=== PATIENT | male | born 1955 | race Two or more races ===

== ENCOUNTER 2024-06-25 15:34 | Emergency (ER) | payer BC, MEDICAID ==
[~2024-06-25] VITALS: Ht 180.3 cm; Wt 78.4 kg
[2024-06-25 16:02] VITALS: BP 150/97; PULSE 89; RESP 16; TEMP 98; O2SAT 98
--- NOTE | 2024-06-25 16:38 | ED.PDOC ---
Eye-HPI HPI Comments A 69 YEAR OLD MALE PRESENTS TO THE ED WITH COMPLAINT OF DECREASED HEARING IN BILATERAL EARS. PATIENT STATES HE HAS BEEN EXPERIENCING DECREASED HEARING IN BOTH OF HIS EARS FOR THE PAST 1 WEEK. PATIENT DENIES FEVER, CHILLS, SHORTNESS OF BREATH, CHEST PAIN, ABDOMINAL PAIN, NAUSEA, VOMITING, HEADACHE, OR OTHER COMPLAINTS. NO OTHER SYMPTOMS OR MODIFYING FACTORS AT THIS TIME. PATIENT IS ALERT, ORIENTED X 4, AND HAS STEADY GAIT. Chief Complaint: Earache Time Seen by MD: 16:03 Reviewed Notes: Nurses Notes, Medications, Allergies Allergies: Coded Allergies: NO KNOWN ALLERGIES (Unverified , 06/25/24) Information Source: Patient Mode of Arrival: Ambulatory Timing: Days Duration: Since onset, Days Prehospital treatment: None Quality: Hearing loss Lids: Normal Conjunctiva: Normal Pupils: Normal EOM: Normal Fundus: Normal Slit lamp exam: Normal Anterior chamber: Normal Mouth: Normal ENT Ear Exam: Cerumen, Normal, Normal Nose: Normal Sinuses: Normal Oropharynx: Normal Onset: Spontaneous Throat Exposed to: None History of: None Last Tetanus: Unknown Modifying factors: Nothing Associated signs and symptoms: None Past Medical History PAST MEDICAL HISTORY: Denies Surgical History: Denies all surgeries Family History Family History: Reviewed,noncontributory to illness Social History Smoker: Non-Smoker Alcohol: Denies ETOH Use Drugs: Denies Drug Use Lives In: Home Constitutional: denies: chills, diaphoresis, fatigue, fever, malaise, sweats, weakness, others EENTM: reports: others (DEECREASED HEARING IN BILATERAL EARS); denies: blurred vision, double vision, ear bleeding, ear discharge, ear drainage, ear pain, ear ringing, eye pain, eye redness, hearing loss, mouth pain, mouth swelling, nasal discharge, nose bleeding, nose congestion, nose pain, photophobia, tearing, throat pain, throat swelling, voice changes Respiratory: denies: cough, hemoptysis, orthopnea, SOB at rest, shortness of breath, SOB with excertion, stridor, wheezing, others Cardiovascular: denies: chest pain, dizzy spells, diaphoresis, Dyspnea on exertion, edema, irregular heart beat, left arm pain, lightheadedness, palpitations, PND, syncope, others Gastrointestinal: denies: abdomen distended, abdominal pain, blood streaked bowels, constipated, diarrhea, dysphagia, difficulty swallowing, hematemesis, melena, nausea, poor appetite, poor fluid intake, rectal bleeding, rectal pain, vomiting, others Genitourinary: denies: burning, dysuria, flank pain, frequency, hematuria, incontinence, penile discharge, penile sore, pain, testicle pain, testicle swelling, urgency, others Neurological: denies: dizziness, fainting, headache, left sided numbness, left sided weakness, numbness, paresthesia, pre-existing deficit, right sided numbness, right sided weakness, seizure, speech problems, tingling, tremors, weakness, others Musculoskeletal: denies: back pain, gout, joint pain, joint swelling, muscle pain, muscle stiffness, neck pain, others Integumetry: denies: bruises, change in color, change in hair/nails, dryness, laceration, lesions, lumps, rash, wounds, others Allergic/Immunocompromised: denies: Difficulty Healing, Frequent Infections, Hives, Itching, others Hematologic/Lymphatic: denies: anemia, blood clots, easy bleeding, easy bruising, swollen glands, others Endocrine: denies: excessive hunger, excessive sweating, excessive thirst, excessive urination, flushing, intolerance to cold, intolerance to heat, unexplained weight gain, unexplained weight loss, others Psychiatric: denies: anxiety, bipolar disorder, depression, hopeless, panic disorder, schizophrenia, sleepless, suicidal, others All Other Systems: Reviewed and Negative Physical Exam General Appearance: No Apparent Distress, Normal HEENT: PERRL/EOMI, Pharynx Normal, TMs Normal, Other (CERUMEN IMPACTION OF BILATERAL EAR CANAL, NO REDNESS, SWELLING AND INFECTION OF TMS. ) Neck: Full Range of Motion, Non-Tender, Normal, Normal Inspection Respiratory: Chest Non-Tender, Lungs Clear, No Accessory Muscle Use, No Respiratory Distress, Normal Breath Sounds Cardiovascular: No Edema, No JVD, No Murmur, No Gallop, Normal Peripheral Pulses, Regular Rate/Rhythm Breast Exam: Deferred Gastrointestinal: No Organomegaly, Non Tender, No Pulsatile Mass, Normal Bowel Sounds, Soft Genitalia: Deferred Pelvic: Deferred Rectal: Deferred Extremities: No calf tenderness, Normal capillary refill, Normal inspection, Normal range of motion, Non-tender, No pedal edema Musculoskeletal : Apperance: Normal Neurologic: Alert, dry cure worker II-XII nml as Tested, No Motor Deficits, Normal Affect, Normal Mood, No Sensory Deficits Cerebellar Function: Normal Reflexes: Normal Skin: Dry, Normal Color, Warm Peripheral Pulses: 2+ carotid (R), 2+ carotid (L) Lymphatic: No Adenopathy Was a procedure done? Was a procedure done?: Yes Sedation Sedation?: No Foreign Body Removal Foreign body in: Ear (BILATERAL EARS) Anesthetic: Nothing Prep: Saline, Irrigation (WITH WARM WATER OF BOTH EARS. ) Procedure: Identified (+BILATERAL CERUMEN IMPACTION), Removed (PATIENT'S BILATERAL EARS WERE SOAKED WITH HYDROGEN PEROXIDE FOR ABOUT 30 MINUTES AND THEN A WARM NORMAL SALINE FLUSH WAS USED TO IRRIGATE THE PATIENT'S BILATERAL EARS. A LARGE AMOUNT OF CERUMEN WAS REMOVED FROM HIS BILATERAL EARS. PATIENT TOLERATED WELL.) Informed consent obtained: No Risks/benefits/alt described: Yes Notes PATIENT'S BILATERAL EARS WERE SOAKED WITH HYDROGEN PEROXIDE FOR ABOUT 30 MINUTES AND THEN A WARM NORMAL SALINE FLUSH WAS USED TO IRRIGATE THE PATIENT'S BILATERAL EARS. A LARGE AMOUNT OF CERUMEN WAS REMOVED FROM HIS BILATERAL EARS. PATIENT TOLERATED WELL. EENT DIFF Eye: N/A Ear: Cerumen Impaction, Otitis Externa, Otitis Media, Pharyngitis, Sinusitis Nose: N/A Mouth: N/A Sore Throat: N/A X-Ray, Labs, Meds, VS Vital Signs Date Time Temp Pulse Resp B/P (MAP) Pulse Ox O2 Delivery O2 Flow Rate FiO2 06/25/24 16:02 89 16 98 Room Air 06/25/24 16:02 98.0 89 16 150/97 (114) 98 98.0 06/25/24 16:02 98.0 89 16 150/97 (114) 98 X-Ray, Labs, Meds, VS Comment EXTERNAL MEDICAL RECORDS REVIEWED: [NONE] INDEPENDENT HISTORIANS: [NONE] SOCIAL DETERMINANTS OF HEALTH: [NONE] LABS ORDERED: NONE REVIEWED AND INTERPRETED RESULTS: NONE IMAGING ORDERED: NONE TREATMENTS ORDERED: PATIENT'S BILATERAL EARS WERE SOAKED WITH HYDROGEN PEROXIDE FOR ABOUT 30 MINUTES AND THEN A WARM NORMAL SALINE FLUSH WAS USED TO IRRIGATE THE PATIENT'S BILATERAL EARS. A LARGE AMOUNT OF CERUMEN WAS REMOVED FROM HIS BILATERAL EARS. PATIENT TOLERATED WELL. PROCEDURES PERFORMED: NONE CRITICAL CARE TIME: NONE I HAVE DISCUSSED THE PATIENT WITH THE ATTENDING PHYSICIAN DR. RAJAN AND HE AGREES WITH THE PATIENT'S PLAN OF CARE AND DISPOSITION. BASED ON HISTORY OF PRESENT ILLNESS, AND PHYSICAL EXAM, PATIENT WILL BE DISCHARGED HOME. SHARED DECISION MAKING: PATIENT INSTRUCTED TO FOLLOW UP WITH PRIMARY CARE PROVIDER IN 1-2 DAYS FOR RE-EVALUATION OF SYMPTOMS. PATIENT VERBALIZES UNDERSTANDING TO RETURN TO ED FOR NEW OR WORSENING SYMPTOMS OR IF FOLLOW UP WITH PCP CANNOT BE OBTAINED. PATIENT FEELS COMFORTABLE GOING HOME AT THIS TIME. ALL QUESTIONS ADDRESSED AT TIME OF DISCHARGE. Time of 1ST Reevaluation: 17:31 Reevaluation 1ST: Improved Patient Education/Counseling: Diagnosis, Treatment, Need For Follow Up Family Education/Counseling: Diagnosis, Treatment, Need For Follow Up Medical Screening: No EMC Exist At This Time Departure 1 Departure Time of Disposition: 17:31 Impression: Primary Impression: Impacted cerumen of both ears Disposition: 01 HOME / SELF CARE / HOMELESS Condition: Stable Additional Instructions: FOLLOW-UP WITH PCP IN 1 TO 2 DAYS. TAKE MEDICATIONS PRESCRIBED. RETURN TO ED FOR ANY NEW OR WORSENING SYMPTOMS. Discharged With: Self Critical Care Note Critical Care Time?: No Stability Stability form required: No I personally scribed for PHYLLIS THAYER ([email or web address]) on 06/25/24 at 16:38. Electronically submitted by Michael Waller ([email or web address]). I personally scribed for PHYLLIS THAYER ([email or web address]) on 06/25/24 at 17:17. Electronically submitted by Michael Waller ([email or web address]). PHYLLIS THAYER Jun 25, 2024 16:38
== END 2024-06-25 17:35 | disposition home or self-care (01) ==
LOC: ER 15:34
DX: H61.23 Impacted cerumen, bilateral (principal)
CPT/HCPCS: 69209

== ENCOUNTER 2025-03-08 17:12 | Emergency (ER) | payer OTHER ==
[~2025-03-08] VITALS: Ht 180.3 cm; Wt 84.9 kg
--- NOTE | 2025-03-08 17:20 | ECG ---
[facility] Test Date: 2025-03-08 Test Time: 17:16:20 Pat Name: GINA FENG Department: Room: Gender: M [employer]isher: GP : 1955 Requested By: EMERGENCY EMERGENCY Order Number: [id number] Reading MD: Measurements Intervals [place] Rate: 95 P: 80 ME: 203 QRS: -67 QRSD: 115 T: 79 QT: 375 QTc: 472 Interpretive Statements Sinus rhythm Incomplete RBBB and LAFB Lateral infarct, old ST elevation, consider inferior injury Please click the below link to view image of tracing.
[2025-03-08 17:44] VITALS: TEMP 97.9
--- NOTE | 2025-03-08 17:46 | ED.PDOC ---
History of Present Illness HPI Comments HPI: 70 y/o M, accompanied by brother in law, presents to the ED for CC of med- refill. Patient states, he has been out of his Lisinopril and Xanax d/t being unable to accommodate transportation to [facility]. Patient relays, that he has been out of his prescribed medications x 2 months. Upon ar rival to the ED, patient is hypertensive with a blood pressure of 188/121mmHg. Patient endorses recent illicit drug usage [id number] ago; brother in law however, states patient was recently at the crisis center for erratic behavior after consumption of unknown illicit drugs x1week ago. Patient denies chest pain, shortness of breath, headache, dizziness, nausea, or vomiting. No other symptoms or modifying factors are present at this time. Initial Vitals BP: HR: RR: O2 Sat: Temp: Past Medical history: Past Surgical history: DENIES ANY Medications: DENIES ANY Social History: REPORTS ILLICIT DRUG USAGE, DENIES TOBACCO OR ETOH USAGE Allergies: NKDA HPI: Poor Historian. REVIEW OF SYSTEMS: CONSTITUTIONAL: Denies acute: fever, diaphoresis, chills, generalized weakness. HEAD: Denies acute: headache, photophobia Eyes: Denies acute: Double vision, vision loss, eye pain, eye discharge. EARS: Denies acute: tinnitus, hearing loss, ear discharge, ear pain, THROAT: Denies acute: sore throat, swelling, difficulty swallowing , pain with swallowing, change in voice. NECK: Denies acute: neck pain, neck swelling, stiff neck. HEART: Denies acute : chest pain, palpitations, LUNGS: Denies acute: SOB, wheezing, cough, hemoptysis ABDOMEN: Denies acute: abdominal pain, Nausea, Vomiting, diarrhea, melena , hematemesis, hematochezia SKIN: Denies acute: rash, redness, lesions, itchiness. EXTREMITIES: Denies acute: calf pain, numbness, tingling, weakness, denies pain in extremity. Denies acute: Low back pain. Neuro: Denies acute: focal neurological deficit, motor or sensory focal neurological deficit, tremors, seizure like activity, confusion, dizziness, change in mental status, loss of bowel or bladder function, cauda equina like symptoms. : Denies acute: dysuria, hematuria, flank pain, increase in urinary frequency. PSYCH: Denies acute: hallucination, suicidal ideation, homicidal ideation. PHYSICAL EXAM: General: ----no----acute distress, awake and alert. Head: normocephalic, atraumatic. No raccoon's eyes, no sandoval sign. Neck: supple, trachea is midline, no swelling. Throat: Normal phonation. Eyes:, no erythema, no purulent discharge, no proptosis, no icterus. Heart: regular rate, regular rhythm, no significant murmur appreciated. Lungs: no apparent respiratory distress, Able to speak in full sentences. No wheezing, no rhonchi, no crackles. No stridors Clear to auscultation bilaterally. Abdomen: non tender to palpation, non distended, soft, no guarding, no rebound, + bowel sounds. Neuro: Awake, Alert, oriented to name, self, situation, follows commands GCS=15. Speech is normal. Skin: no petechia, no purpura, no cyanosis, non-pale, not jaundice. Lower extremities: --no - Pitting edema no deformity, no focal swelling, no calf TTP. Makes eye contact. moves all four extremities. Face: no apparent facial droop. Ambulating in the ED independently. ED COURSE: DISCLAIMER: This medical document was created using an electronic medical record system with voice recognition software and computerized dictation system. Although this do cument has been carefully reviewed, there might still be some phonetic and typographical errors. Occasional wrong-word or "sound-alike" substitutions may have occurred due to the inherent limitations of voice recognition software. These areas are purely typographical due to imperfections of the software programs and do not reflect any compromise in the patient's medical care. Please read the chart carefully and recognize, using context, where these substitutions have occurred. Chief Complaint: Chest Pain Time Seen by MD: 17:30 Reviewed Notes: Nurses Notes, Medications, Allergies Allergies: Coded Allergies: NO KNOWN ALLERGIES (Unverified , 06/25/24) Information Source: Patient, Relative Mode of Arrival: Ambulatory Prehospital treatment: None Was a procedure done? Was a procedure done?: No EKG EKG : Pulse Rate (adult): 95 [place]: Normal Cardiac Rhythm: NSR Block: LBBB (incomplete) Hypertrophy: None ST: Normal Comments INCOMPLETE RBBB & LAFB Differential Dx Considerations may include: hypertensive crisis, hypertensive urgency, drug toxicity As far as hypertension: DDX include renal disease, thyroid disease, electrolyte abnormality, increased salt intake, medications non-compliance, undiagnosed HTN, Hypertensive crisis, hypertensive urgency., drug toxicity. X-Ray, Labs, Meds, VS Vital Signs Date Time Temp Pulse Resp B/P (MAP) Pulse Ox O2 Delivery O2 Flow Rate FiO2 03/08/25 20:47 179/114 03/08/25 20:44 88 15 98 Room Air 03/08/25 20:44 88 15 179/114 (135) 98 03/08/25 19:55 174/113 03/08/25 19:45 85 17 174/113 (133) 97 03/08/25 17:59 92 16 98 Room Air* 0 21 03/08/25 17:54 191/125 03/08/25 17:46 95 03/08/25 17:44 97.9 92 16 191/125 (147) 97 97.9 03/08/25 17:20 97.4 92 16 188/121 95 97.4 03/08/25 17:16 95 Lab Test 03/08/25 18:23 03/08/25 18:14 03/08/25 17:19 Range/Units Urine Opiates Screen Neg NEGATIVE Urine Fentanyl Screen Neg NEGATIVE Urine Barbiturates Screen Neg NEGATIVE Urine Phencyclidine Screen Neg NEGATIVE Urine Amphetamines Screen Pos NEGATIVE Urine Benzodiazepines Screen Neg NEGATIVE Urine Cocaine Screen Neg NEGATIVE Urine Cannabinoids Screen Neg NEGATIVE Troponin I High Sensitivity 11 12 </=54 ng/L Plasma/Serum Blood Alcohol < 3.0 <10 mg/dL White Blood Count 8.3 4.4-10.8 10^3/uL Red Blood Count 4.80 4.5-5.90 10^6/uL Hemoglobin 15.0 13.5-17.5 g/dL Hematocrit 42.3 41.0-53.0 % Mean Corpuscular Volume 88.2 80.0-100.0 fL Mean Corpuscular Hemoglobin 31.3 28.0-32.0 pg Mean Corpuscular Hemoglobin Concent 35.5 32.0-36.0 g/dL Red Cell Distribution Width 13.1 11.8-14.3 % Platelet Count 308 140-450 10^3/uL Mean Platelet Volume 7.3 6.9-10.8 fL Neutrophils (%) (Auto) 69.1 37.0-80.0 % Lymphocytes (%) (Auto) 20.9 10.0-50.0 % Monocytes (%) (Auto) 7.3 0.0-12.0 % Eosinophils (%) (Auto) 1.8 0.0-7.0 % Basophils (%) (Auto) 0.9 0.0-2.0 % Neutrophils # (Auto) 5.7 1.6-8.6 10 ^3/uL Lymphocytes # (Auto) 1.7 0.4-5.4 10 ^3/uL Monocytes # (Auto) 0.6 0-1.3 10 ^3/uL Eosinophils # (Auto) 0.2 0-0.8 10 ^3/uL Basophils # (Auto) 0.1 0-0.2 10 ^3/uL Nucleated Red Blood Cells 0.1 % Sodium Level 143 136-145 mmol/L Potassium Level 3.6 3.5-5.1 mmol/L Chloride Level 106 98-107 mmol/L Carbon Dioxide Level 28 20-31 mmol/L Anion Gap 9 5-15 Blood Urea Nitrogen 13 9-23 mg/dL Creatinine 0.90 0.700-1.30 mg/dL Glomerular Filtration Rate Calc 92 >90 mL/min BUN/Creatinine Ratio 14.4 10.0-20.0 Serum Glucose 95 74-106 mg/dL Calcium Level 9.3 8.7-10.4 mg/dL Total Bilirubin 0.5 0.2-1.0 mg/dL Aspartate Amino Transferase (AST) 24 13-40 U/L Alanine Aminotransferase (ALT) 22 7-40 U/L Alkaline Phosphatase 66 46-116 U/L B-Type Natriuretic Peptide 124.50 0-100 pg/mL Total Protein 7.7 5.7-8.2 g/dL Albumin 4.6 3.2-4.8 g/dL Current Medications Medications (Trade) Dose Ordered Sig/Rosanne Route Start Time Stop Time Status Last Admin Hydralazine HCl (Apresoline Injection) 5 mg ONCE ONCE IV 03/08/25 17:45 03/08/25 17:46 DC 03/08/25 17:54 Hydralazine HCl (Apresoline Injection) 5 mg ONCE ONCE IV 03/08/25 19:00 03/08/25 19:42 DC 03/08/25 19:55 Hydralazine HCl (Apresoline Injection) 5 mg ONCE ONCE IV 03/08/25 20:00 03/08/25 20:08 DC 03/08/25 20:[address] [address] Ph: [phone] DIAGNOSTIC IMAGING Diagnostic Imaging Report : [id number] Signed PATIENT: GINA FENG ACCT: [id number] UNIT: [id number] : 1955 LOC: ER ROOM / BED: / AGE / SEX: 70 / M ADM STATUS: REG ER SERVICE 18 ORDERING PHYSICIAN: CONY BOLDEN DO PROCEDURE(s): CXRP - CHEST PORTABLE REASON: cp ORDER NUMBER(s): [id number], ACCESSION NUMBER(s): [id number] CHEST RADIOGRAPH Indication: cp Technique: Single frontal view of the chest was obtained COMPARISON: None FINDINGS: Lines and Tubes: None Lungs: Increased interstitial prominence. This may represent pulmonary vascular congestion and/or viral pneumonia. Pleura: No effusion.No pneumothorax. Cardiomediastinal contours: Unremarkable Bones: Unremarkable IMPRESSION: Increased interstitial prominence. This may represent pulmonary vascular congestion and/or viral pneumonia. ATED BY: THOMAS GARCIA MD DICTATED DATE/TIME: 03/08/251841 SIGNED BY: THOMAS GARCIA MD SIGNED DATE/TIME: 03/08/251841 CC: Time of 1ST Reevaluation: 18:00 Reevaluation 1ST: Unchanged Patient Education/Counseling: Diagnosis, Treatment Family Education/Counseling: Diagnosis, Treatment Comments MDM: patient presented with the above HPI.---hypertensive crisis---workup was initiated. patient was found with the above mentioned diagnosis. Patient actually denies any chest pain or shortness of breath. the following medications were ordered: please refer to order lists of meds and tests obtained by myself Dr. Bolden. Patient ED course and VS have been stabilized. Patient has been reassessed in the ED and remained in a stable condition. Pertinent incidental findings were discussed with the patient and/or family. Patient/family voices understanding and is agreeable with plan. Patient has been observed in the ED adequate length of time to insure improvement/stability. Escalation of care considered: Consideration of escalation to observation or admission Multiple bolus of hydralazine IV were given to control his blood pressure. Patient remained hypertensive. Patient refused nitroglycerin sublingually. Patient was started on a nicardipine drip. Patient was ADMITTED to the medicine team for further evaluation and treatment of their presentation. All the reports of any imaging studies that were ordered by myself were reviewed by myself. SEPSIS Sepsis Screen Date sepsis recognized/suspect: Mar 08, 2025 Time Sepsis recognized/suspect: 1723 Recent Procedure: No On Antibiotic Therapy: No Respiratory Rate >20: No Heart Rate >90: No Temp<36 C (96.8 F) or >38.3 C: No SBP <90 or MAP <65 mmHG: No New Acute Mental Status Change: No Is the patient on CPAP, BIPAP,: No Physician Orders Electrocardigram (03/08/25 18:19) Electrocardigram (03/08/25 20:19) Training Generalist (03/08/25 ) Chest Portable (03/08/25 17:19) Nicardipine 20mg/200ml (Cardene Iv) (03/08/25 21:00) Vital Signs Date Time Temp Pulse Resp B/P (MAP) Pulse Ox O2 Delivery O2 Flow Rate FiO2 03/08/25 20:47 179/114 03/08/25 20:44 88 15 98 Room Air 03/08/25 20:44 88 15 179/114 (135) 98 03/08/25 19:55 174/113 03/08/25 19:45 85 17 174/113 (133) 97 03/08/25 17:59 92 16 98 Room Air* 0 21 03/08/25 17:54 191/125 03/08/25 17:46 95 03/08/25 17:44 97.9 92 16 191/125 (147) 97 97.9 03/08/25 17:20 97.4 92 16 188/121 95 97.4 03/08/25 17:16 95 Laboratory Tests Test 03/08/25 17:19 White Blood Count 8.3 10^3/uL (4.4-10.8) Medications Medications Dose Ordered Sig/Rosanne Route Start Time Stop Time Status Last Admin Dose Admin Hydralazine HCl 5 mg ONCE ONCE IV 03/08/25 17:45 03/08/25 17:46 DC 03/08/25 17:54 Hydralazine HCl 5 mg ONCE ONCE IV 03/08/25 19:00 03/08/25 19:42 DC 03/08/25 19:55 Hydralazine HCl 5 mg ONCE ONCE IV 03/08/25 20:00 03/08/25 20:08 DC 03/08/25 20:47 Departure 1 Departure Time of Disposition: 18:58 Impression: Primary Impression: Hypertensive crisis Additional Impressions: History of medication noncompliance Methamphetamine abuse Disposition: ADMITTED INPATIENT Admit to: Tele Condition: Guarded Additional Instructions: [address] [address] Ph: [phone] DIAGNOSTIC IMAGING Diagnostic Imaging Report : [id number] Signed PATIENT: GINA FENG ACCT: [id number] UNIT: [id number] : 1955 LOC: ER ROOM / BED: / AGE / SEX: 70 / M ADM STATUS: REG ER SERVICE 18 ORDERING PHYSICIAN: CONY BOLDEN DO PROCEDURE(s): CXRP - CHEST PORTABLE REASON: cp ORDER NUMBER(s): [id number], ACCESSION NUMBER(s): [id number] CHEST RADIOGRAPH Indication: cp Technique: Single frontal view of the chest was obtained COMPARISON: None FINDINGS: Lines and Tubes: None Lungs: Increased interstitial prominence. This may represent pulmonary vascular congestion and/or viral pneumonia. Pleura: No effusion.No pneumothorax. Cardiomediastinal contours: Unremarkable Bones: Unremarkable IMPRESSION: Increased interstitial prominence. This may represent pulmonary vascular congestion and/or viral pneumonia. ATED BY: THOMAS GARCIA MD DICTATED DATE/TIME: 03/08/251841 SIGNED BY: THOMAS GARCIA MD SIGNED DATE/TIME: 03/08/251841 CC: Discharged With: Self Critical Care Note Critical Care Time?: Yes (45 min-critical care time only) Critical care comment: Management of hypertensive crisis. Multiple IV medications were given control the blood pressure. Patient was started on a nicardipine drip I personally scribed for CONY BOLDEN DO ([email or web address]) on 03/08/25 at 17:46. Electronically submitted by Maddi John ([email or web address]). I personally scribed for CONY BOLDEN DO ([email or web address]) on 03/08/25 at 19:01. Electronically submitted by Maddi John ([email or web address]). CONY BOLDEN DO Mar 08, 2025 17:46
[2025-03-08] MEDS: hydrALAZINE HCL 20 MG/ML VL IV ONE ×3 (17:54→20:47)
[2025-03-08 17:59] VITALS: PULSE 92; RESP 16; O2SAT 98
[2025-03-08 17:59] LABS: Hematocrit 42.3 % (41.0-53.0); Hemoglobin 15.0 g/dL (13.5-17.5); Mean Corpuscular Hemoglobin 31.3 pg (28.0-32.0); Mean Corpuscular Volume 88.2 fL (80.0-100.0); Nucleated Red Blood Cells % 0.1 %
[2025-03-08 18:17] LABS: Alanine Aminotransferase 22 U/L (7-40); Albumin 4.6 g/dL (3.2-4.8); Alkaline Phosphatase 66 U/L (46-116); Anion Gap 9 (5-15); BUN/Creatinine Ratio 14.4 (10.0-20.0); Bilirubin, Total 0.5 mg/dL (0.2-1.0); Blood Urea Nitrogen 13 mg/dL (9-23); Calcium 9.3 mg/dL (8.7-10.4); Carbon Dioxide 28 mmol/L (20-31); Chloride 106 mmol/L (98-107); Glucose 95 mg/dL (74-106); Potassium 3.6 mmol/L (3.5-5.1); Sodium 143 mmol/L (136-145); Total Protein 7.7 g/dL (5.7-8.2)
[2025-03-08 18:42] LABS: Benzodiazephine Screen, Urine Neg (NEGATIVE)
--- NOTE | 2025-03-08 18:44 | DVH ---
CHEST RADIOGRAPH Indication: cp Technique: Single frontal view of the chest was obtained COMPARISON: None FINDINGS: Lines and Tubes: None Lungs: Increased interstitial prominence. This may represent pulmonary vascular congestion and/or viral pneumonia. Pleura: No effusion.No pneumothorax. Cardiomediastinal contours: Unremarkable Bones: Unremarkable IMPRESSION: Increased interstitial prominence. This may represent pulmonary vascular congestion and/or viral pneumonia.
[2025-03-08 18:47] LABS: Amphetamine Screen, Urine Pos (NEGATIVE); Barbiturate Scree,Urine Neg (NEGATIVE); Cannabinoid Screen, Urine Neg (NEGATIVE); Cocaine Screen, Urine Neg (NEGATIVE); Opiate Scree,Urine Neg (NEGATIVE); Phencyclidine Screen, Urine Neg (NEGATIVE)
[2025-03-08] MEDS: NITROGLYCERIN 0.4 MG SL TAB SL ONE (19:45)
[2025-03-08 20:44] VITALS: BP 179/114; PULSE 88; RESP 15; O2SAT 98
== END 2025-03-08 21:41 | disposition left against medical advice (07) ==
LOC: ER 17:12
DX: I16.9 Hypertensive crisis, unspecified (principal); F15.10 Other stimulant abuse, uncomplicated; I10 Essential (primary) hypertension; Z79.899 Other long term (current) drug therapy
CPT/HCPCS: 36415; 71045; 80053; 80307; 80320; 83880; 84484; 85025; 93005; 96374; 96376; 99285; J0360

== ENCOUNTER 2025-05-01 11:23 | Inpatient (IN) | payer OTHER ==
[~2025-05-01] VITALS: Ht 180.3 cm; Wt 79.3 kg
--- NOTE | 2025-05-01 11:42 | ED.PDOC ---
HPI (NEURO) HPI Comments This is a 70 year old male presenting to the ED with chief complaint of facial weakness. Patient reports that he had woken up this morning with left sided facial droop. Patient denies any numbness, tingling, extremity weakness, chest pain, SOB, or headache. Chief Complaint: General Weakness Time Seen by MD: 11:37 Reviewed Notes: Nurses Notes, Medications, Allergies Information Source: Patient Mode of Arrival: Ambulatory Severity: Moderate Timing: Hours Duration: Since onset Prehospital treatment: None Weakness Location: Facial Onset: At rest Circumstances: Spontaneous Symptoms: Weakness Past Medical History PAST MEDICAL HISTORY: Anxiety, HTN Surgical History: Denies all surgeries Family History Family History: Reviewed,noncontributory to illness Social History Smoker: Non-Smoker Alcohol: Denies ETOH Use Drugs: Denies Drug Use Lives In: Home Constitutional: denies: chills, diaphoresis, fatigue, fever, malaise, sweats, weakness, others EENTM: denies: blurred vision, double vision, ear bleeding, ear discharge, ear drainage, ear pain, ear ringing, eye pain, eye redness, hearing loss, mouth pain, mouth swelling, nasal discharge, nose bleeding, nose congestion, nose pain, photophobia, tearing, throat pain, throat swelling, voice changes, others Respiratory: denies: cough, hemoptysis, orthopnea, SOB at rest, shortness of breath, SOB with excertion, stridor, wheezing, others Cardiovascular: denies: chest pain, dizzy spells, diaphoresis, Dyspnea on exertion, edema, irregular heart beat, left arm pain, lightheadedness, palpitations, PND, syncope, others Gastrointestinal: denies: abdomen distended, abdominal pain, blood streaked bowels, constipated, diarrhea, dysphagia, difficulty swallowing, hematemesis, melena, nausea, poor appetite, poor fluid intake, rectal bleeding, rectal pain, vomiting, others Genitourinary: denies: burning, dysuria, flank pain, frequency, hematuria, incontinence, penile discharge, penile sore, pain, testicle pain, testicle swelling, urgency, others Neurological: reports: others (Left facial droop); denies: dizziness, fainting, headache, left sided numbness, left sided weakness, numbness, paresthesia, pre- existing deficit, right sided numbness, right sided weakness, seizure, speech problems, tingling, tremors, weakness Musculoskeletal: denies: back pain, gout, joint pain, joint swelling, muscle pain, muscle stiffness, neck pain, others Integumetry: denies: bruises, change in color, change in hair/nails, dryness, laceration, lesions, lumps, rash, wounds, others Allergic/Immunocompromised: denies: Difficulty Healing, Frequent Infections, Hives, Itching, others Hematologic/Lymphatic: denies: anemia, blood clots, easy bleeding, easy bruising, swollen glands, others Endocrine: denies: excessive hunger, excessive sweating, excessive thirst, excessive urination, flushing, intolerance to cold, intolerance to heat, unexplained weight gain, unexplained weight loss, others Psychiatric: denies: anxiety, bipolar disorder, depression, hopeless, panic disorder, schizophrenia, sleepless, suicidal, others All Other Systems: Reviewed and Negative Physical Exam General Appearance: Moderate Distress, Normal HEENT: Normal ENT Inspection, Pharynx Normal, TMs Normal Neck: Full Range of Motion, Non-Tender, Normal, Normal Inspection Respiratory: Chest Non-Tender, Lungs Clear, No Accessory Muscle Use, No Respiratory Distress, Normal Breath Sounds Cardiovascular: No Edema, No JVD, No Murmur, No Gallop, Normal Peripheral Pulses, Regular Rate/Rhythm Breast Exam: Deferred Gastrointestinal: No Organomegaly, Non Tender, No Pulsatile Mass, Normal Bowel Sounds, Soft Genitalia: Deferred Pelvic: Deferred Rectal: Deferred Extremities: No calf tenderness, Normal capillary refill, Normal inspection, N ormal range of motion, Non-tender, No pedal edema Musculoskeletal : Apperance: Normal Neurologic: Alert, fact checker II-XII nml as Tested, Facial Droop, No Sensory Deficits Cerebellar Function: Normal Reflexes: Normal Skin: Dry, Normal Color, Warm Peripheral Pulses: 3+ Radial (R), 3+ Radial (L) Lymphatic: No Adenopathy Was a procedure done? Was a procedure done?: No Differential Diagnosis (SZ) Seizure: Psychogenic Seizure, Anticonvulsant Withdrawl, CVA/TIA CVA: Owen's Palsy, CVA, TIA X-Ray, Labs, Meds, VS Vital Signs Date Time Temp Pulse Resp B/P (MAP) Pulse Ox O2 Delivery O2 Flow Rate FiO2 05/01/25 11:24 97.0 87 16 166/119 98 97.0 Patient alert. Has a facial droop. Blood pressure elevated. Saturation pristine on room air. Was given labetalol. Explained to the patient he will need further studies. Continue monitoring. Time of 1ST Reevaluation: 12:37 Reevaluation 1ST: Unchanged Patient Education/Counseling: Diagnosis, Treatment Family Education/Counseling: No Family Present Departure 1 Departure Time of Disposition: 11:52 Impression: Primary Impression: Hypertensive emergency Additional Impression: Owen's palsy Disposition: ADMITTED INPATIENT Admit to: Med Surg Condition: Guarded Critical Care Note Critical Care Time?: Yes (90 min-critical care time only) Stability Stability form required: No Heart Score Heart Score: Heart Score Response (Comments) Value History N/A 0 EKG N/A 0 Age N/A 0 Risk Factors N/A 0 Troponin N/A 0 Total 0 I personally scribed for SARAY RAJAN MD ([email or web address]) on 05/01/25 at 11:42. Electronically submitted by Edwar Valero ([email or web address]). SARAY RAJAN MD May 01, 2025 11:42
[2025-05-01 12:25] LABS: Hematocrit 44.7 % (41.0-53.0); Hemoglobin 15.7 g/dL (13.5-17.5); Mean Corpuscular Hemoglobin 30.5 pg (28.0-32.0); Mean Corpuscular Volume 86.5 fL (80.0-100.0); Nucleated Red Blood Cells % 0.1 %
[2025-05-01 12:32] LABS: Chloride 104 mmol/L (98-107); Potassium 3.9 mmol/L (3.5-5.1); Sodium 142 mmol/L (136-145)
[2025-05-01 12:33] LABS: Anion Gap 7 (5-15); Calcium 10.0 mg/dL (8.7-10.4); Carbon Dioxide 31 mmol/L (20-31)
--- NOTE | 2025-05-01 12:36 | DVH ---
CT HEAD WITHOUT CONTRAST INDICATION: bells COMPARISON: None TECHNIQUE: CT of the head without intravenous contrast. RADIATION DOSE: CTDIvol: 55.7 mGy, DLP: 1097.72 mGy*cm FINDINGS: There is no evidence of acute intracranial hemorrhage, extra-axial collection, mass effect, midline shift, herniation or hydrocephalus. The ventricles, sulci and cisterns are age appropriate. The dillon-white differentiation is intact. Mucosal thickening of the right maxillary sinus. The surrounding soft tissues and osseous structures are unremarkable. IMPRESSION: 1. No acute intracranial abnormality.
[2025-05-01 12:38] LABS: BUN/Creatinine Ratio 13.7 (10.0-20.0); Blood Urea Nitrogen 13 mg/dL (9-23); Glucose 93 mg/dL (74-106)
[2025-05-01 15:05] VITALS: PULSE 88; RESP 18; O2SAT 98
[2025-05-01] MEDS: predniSONE 20 MG TAB PO ONE (15:28)
[2025-05-01] MEDS: LABETALOL HCL 20 MG/4 ML VL IV ONE (15:29)
[2025-05-01] MEDS ORDERED: NITROGLYCERIN 0.4 MG SL TAB SL PRN (21:30)
[2025-05-01] MEDS ORDERED: MORPHINE SULFATE INJ 2 MG/ml SYRG IV PRN (21:30)
[2025-05-01] MEDS ORDERED: ONDANSETRON HCL 4 MG/2 ML VIAL IV PRN (21:30)
--- NOTE | 2025-05-01 21:41 | DVHHP2 ---
History of Present Illness HPI This is a 70 year old male presenting to the ED with chief complaint of facial weakness. Patient reports that he had woken up this morning with left sided facial droop. Patient denies any numbness, tingling, extremity weakness, chest pain, SOB, or headache. Home Meds Active Scripts Nifedipine (Nifedipine Er) 30 Mg Tab, 30 MG PO DAILY for 30 Days, #30 TAB 6 Refills take 1 tab daily Prov:SABINO STINSON DO 05/03/25 Losartan Potassium (Losartan Potassium) 50 Mg Tab, 50 MG PO DAILY for 30 Days, #30 TAB 6 Refills Prov:SABINO STINSON DO 05/03/25 Reported Medications Losartan Potassium (Losartan Potassium) 25 Mg Tab, 1 TAB PO DAILY, TAB 1 Refill 05/02/25 Review of Systems Constitutional: No symptom reported Eyes: No symptom reported Gastrointestinal: No symptom reported Genitourinary: No symptom reported H&P Exam Vital Signs Vital Signs Date Time Temp Pulse Resp B/P (MAP) Pulse Ox O2 Delivery O2 Flow Rate FiO2 05/01/25 21:27 98.3 97 20 167/126 (140) 96 98.3 05/01/25 21:27 Room Air 05/01/25 15:05 1 24 General Appeara: Well developed, Well nourished Pulmonary/Respiratory: Normal inspection Cardiovascular/Chest: Normal inspection Abdominal Exam: Normal bowel sounds SEPSIS Sepsis Screen Date sepsis recognized/suspect: May 01, 2025 Time Sepsis recognized/suspect: 2128 Recent Procedure: No On Antibiotic Therapy: No Respiratory Rate >20: No Heart Rate >90: Yes Temp<36 C (96.8 F) or >38.3 C: No SBP <90 or MAP <65 mmHG: No New Acute Mental Status Change: No Is the patient on CPAP, BIPAP,: No Physician Orders Admit (05/01/25 21:28) Code Status (05/01/25 21:28) 2 Gm Sodium Diet (05/02/25 Breakfast) Ondansetron Hcl (Zofran) (05/01/25 21:30) Enoxaparin Sodium (Lovenox) (05/02/25 10:00) Complete Blood Count (05/02/25 04:00) Comprehensive Metabolic Panel (05/02/25 04:00) Condition: Serious (05/01/25 21:28) Nitroglycerin Sublingual (Ntrostat Subli (05/01/25 21:30) Morphine Sulfate Injection (05/01/25 21:30) Stat Ekg For Chest Pain (05/01/25 21:28) Notify Of Changes From Base (05/01/25 21:28) Quantity Surveyor For 24 Hours (05/01/25 21:28) Emergency Dysrhythmia Protocol (05/01/25 21:28) Rhythm Strips Once Every Shift (05/01/25 21:28) Oxygen By Nasal Cannula (05/01/25 21:28) Vital Signs Date Time Temp Pulse Resp B/P (MAP) Pulse Ox O2 Delivery O2 Flow Rate FiO2 05/01/25 21: 98.3 97 20 167/126 (140) 96 98.3 05/01/25 21:27 97 20 96 Room Air 05/01/25 18:13 97.5 97 18 161/108 (125) 98 97.5 05/01/25 15:29 84 160/99 05/01/25 15:05 88 18 98 Nasal Cannula* 1 24 05/01/25 15:05 97.4 88 18 178/110 (132) 90 97.4 Laboratory Tests Test 05/01/25 11:53 White Blood Count 6.4 10^3/uL (4.4-10.8) Medications Medications Dose Ordered Sig/Rosanne Route Start Time Stop Time Status Last Admin Dose Admin Labetalol HCl 10 mg ONCE ONCE IV 05/01/25 12:00 05/01/25 12:01 DC 05/01/25 15:29 10 MG Prednisone 60 mg ONCE ONCE PO 05/01/25 12:00 05/01/25 12:01 DC 05/01/25 15:28 60 MG Labs/Xrays Labs Test 05/01/25 11:53 Range/Units White Blood Count 6.4 4.4-10.8 10^3/uL Red Blood Count 5.17 4.5-5.90 10^6/uL Hemoglobin 15.7 13.5-17.5 g/dL Hematocrit 44.7 41.0-53.0 % Mean Corpuscular Volume 86.5 80.0-100.0 fL Mean Corpuscular Hemoglobin 30.5 28.0-32.0 pg Mean Corpuscular Hemoglobin Concent 35.2 32.0-36.0 g/dL Red Cell Distribution Width 12.9 11.8-14.3 % Platelet Count 247 140-450 10^3/uL Mean Platelet Volume 7.6 6.9-10.8 fL Neutrophils (%) (Auto) 63.7 37.0-80.0 % Lymphocytes (%) (Auto) 24.9 10.0-50.0 % Monocytes (%) (Auto) 8.1 0.0-12.0 % Eosinophils (%) (Auto) 2.6 0.0-7.0 % Basophils (%) (Auto) 0.7 0.0-2.0 % Neutrophils # (Auto) 4.1 1.6-8.6 10 ^3/uL Lymphocytes # (Auto) 1.6 0.4-5.4 10 ^3/uL Monocytes # (Auto) 0.5 0-1.3 10 ^3/uL Eosinophils # (Auto) 0.2 0-0.8 10 ^3/uL Basophils # (Auto) 0 0-0.2 10 ^3/uL Nucleated Red Blood Cells 0.1 % Sodium Level 142 136-145 mmol/L Potassium Level 3.9 3.5-5.1 mmol/L Chloride Level 104 98-107 mmol/L Carbon Dioxide Level 31 20-31 mmol/L Anion Gap 7 5-15 Blood Urea Nitrogen 13 9-23 mg/dL Creatinine 0.95 0.700-1.30 mg/dL Glomerular Filtration Rate Calc 86 >90 mL/min BUN/Creatinine Ratio 13.7 10.0-20.0 Serum Glucose 93 74-106 mg/dL Calcium Level 10.0 8.7-10.4 mg/dL Troponin I High Sensitivity 6 </=54 ng/L Assessment/Plan Primary Diagnosis This is a 70 year old male presenting to the ED with chief complaint of facial weakness. Patient reports that he had woken up this morning with left sided facial droop. Patient denies any numbness, tingling, extremity weakness, chest pain, SOB, or headache. hypertensive crisis facial droop CVA rule out facial weakness admitted consult to neuro if needed tx of HTN urgency time: >45 minutes Plan discussed with: Patient STINSON,SABINO Franks DO May 01, 2025 21:41
[2025-05-02] VITALS (14 sets, daily range): BP systolic 124–175; BP diastolic 89–119; PULSE 80–96; RESP 14–20; TEMP 97.7–98.6; O2SAT 0–98
[2025-05-02 05:06] LABS: Hematocrit 41.6 % (41.0-53.0); Hemoglobin 15.0 g/dL (13.5-17.5); Mean Corpuscular Hemoglobin 31.1 pg (28.0-32.0); Mean Corpuscular Volume 86.4 fL (80.0-100.0); Nucleated Red Blood Cells % 0.0 %
[2025-05-02 05:15] LABS: Alanine Aminotransferase 14 U/L (7-40); Alkaline Phosphatase 56 U/L (46-116); Anion Gap 9 (5-15); Blood Urea Nitrogen 14 mg/dL (9-23); Calcium 9.5 mg/dL (8.7-10.4); Carbon Dioxide 25 mmol/L (20-31); Chloride 105 mmol/L (98-107); Potassium 4.0 mmol/L (3.5-5.1); Sodium 139 mmol/L (136-145); Total Protein 7.2 g/dL (5.7-8.2)
[2025-05-02 05:16] LABS: Albumin 4.4 g/dL (3.2-4.8); BUN/Creatinine Ratio 16.9 (10.0-20.0); Bilirubin, Total 0.7 mg/dL (0.2-1.0); Glucose 133 mg/dL (74-106)
[2025-05-02] MEDS: ENOXAPARIN SOD 40 MG/0.4 ML SYRINGE SC SCH (10:41)
[2025-05-02] MEDS ORDERED: LOSA-533 PO (14:38)
--- NOTE | 2025-05-02 15:43 | DVHPN2 ---
Progress Note Date Seen: May 02, 2025 Medical Necessity Reason Pt with a Central, PICC or Fol: No Subjective Review of Systems: HEENT:Normal, CVS:Normal, RESPIRATORY:Normal Objective vital signs Vital Sign Date Time Temp Pulse Resp B/P (MAP) Pulse Ox O2 Delivery O2 Flow Rate FiO2 05/02/25 13:00 160/119 (133) 05/02/25 12:50 98.0 90 20 98.0 05/02/25 09:28 98 05/02/25 09:15 Room Air* 0 21 medications Current Medications Medications Dose Ordered Sig/Rosanne Route Start Time Stop Time Status Last Admin Dose Admin Ondansetron HCl 4 mg Q4HP PRN IV 05/01/25 21:30 Enoxaparin Sodium 40 mg DAILY SC 05/02/25 10:00 05/02/25 10:41 40 MG Nitroglycerin 0.4 mg Q5MINP PRN SL 05/01/25 21:30 Morphine Sulfate 2 mg Q30M PRN IV 05/01/25 21:30 Examination: GENERAL:Normal, HEENT:Normal, NECK:Normal, LUNGS:Normal laboratory and microbiology Laboratory Tests 05/02/25 04:23 Test 05/02/25 04:23 Range/Units Serum Glucose 133 H 74-106 mg/dL Labs and/or images reviewed: Labs reviewed by me, Image(s) reviewed by me Problem List/Assessment/Plan Problem List/Assessment/Plan This is a 70 year old male presenting to the ED with chief complaint of facial weakness. Patient reports that he had woken up this morning with left sided facial droop. Patient denies any numbness, tingling, extremity weakness, chest pain, SOB, or headache. hypertensive crisis facial droop CVA rule out facial weakness admitted consult to neuro if needed tx of HTN urgency time: >45 minutes Plan discussed with: Patient My Orders My Orders Orders - SABINO STINSON DO Procedure Category Date Status Time Admit ADMIT 05/01/25 Transmitted 21:28 Code Status CODE 05/01/25 Transmitted 21:28 2 Gm Sodium Diet DIET 05/02/25 Transmitted Breakfast Ondansetron Hcl PHA 05/01/25 In Process (Zofran) 21:30 Enoxaparin Sodium PHA 05/02/25 In Process (Lovenox) 10:00 Condition: Serious LEONARDO 05/01/25 In Process 21:28 Nitroglycerin PHA 05/01/25 In Process Sublingual (Ntrostat 21:30 Morphine Sulfate PHA 05/01/25 In Process Injection 21:30 Stat Ekg For Chest LEONARDO 05/01/25 In Process Pain 21:28 Notify Of Changes LEONARDO 05/01/25 In Process From Base 21:28 Adjunct Instructor Of Women'S Studies For LEONARDO 05/01/25 In Process 24 Hours 21:28 Emergency Dysrhythmia LEONARDO 05/01/25 In Process Protocol 21:28 Rhythm Strips Once BANNER 05/01/25 In Process Every Shift 21:28 Oxygen By Nasal RT 05/01/25 Transmitted Cannula 21: Losartan Tablet PHA 05/03/25 Verified (Cozaar Tablet) 10:00 Nifedipine Er PHA 05/03/25 Verified (Procardia Xl 10:00 SABINO STINSON DO May 02, 2025 15:43
[2025-05-02] MEDS: LOSARTAN POTASSIUM 50 MG TAB PO ONE (16:33)
[2025-05-02] MEDS: hydrALAZINE HCL 20 MG/ML VL IV PRN (16:40)
[2025-05-02] MEDS: ALPRAZolam 0.5 MG TAB PO PRN (17:43)
[2025-05-03 01:00] VITALS: BP 136/92; PULSE 80; RESP 18; TEMP 97.6; O2SAT 96
[2025-05-03 05:00] VITALS: BP 134/90; PULSE 74; RESP 18; TEMP 98.6; O2SAT 96
[2025-05-03 08:41] VITALS: BP 124/79; PULSE 80; RESP 16; TEMP 98.1; O2SAT 94
[2025-05-03] MEDS: LOSARTAN POTASSIUM 50 MG TAB PO SCH (09:36)
[2025-05-03] MEDS ORDERED: NIFE1TAB31 PO (11:50)
[2025-05-03] MEDS ORDERED: LOSA-534 PO (11:50)
--- NOTE | 2025-05-03 11:53 | DVHDS2 ---
Discharge Summary Date of Admission May 01, 2025 at 21:28 Date of Discharge: May 03, 2025 Labs/Diagnostic Data: Laboratory Results Test 05/02/25 04:23 05/01/25 11:53 White Blood Count 10.5 10^3/uL (4.4-10.8) Red Blood Count 4.82 10^6/uL (4.5-5.90) Hemoglobin 15.0 g/dL (13.5-17.5) Hematocrit 41.6 % (41.0-53.0) Mean Corpuscular Volume 86.4 fL (80.0-100.0) Mean Corpuscular Hemoglobin 31.1 pg (28.0-32.0) Mean Corpuscular Hemoglobin Concent 36.0 g/dL (32.0-36.0) Red Cell Distribution Width 13.0 % (11.8-14.3) Platelet Count 242 10^3/uL (140-450) Mean Platelet Volume 7.4 fL (6.9-10.8) Neutrophils (%) (Auto) 83.8 % (37.0-80.0) Lymphocytes (%) (Auto) 9.7 % (10.0-50.0) Monocytes (%) (Auto) 6.2 % (0.0-12.0) Eosinophils (%) (Auto) 0.1 % (0.0-7.0) Basophils (%) (Auto) 0.2 % (0.0-2.0) Neutrophils # (Auto) 8.8 10 ^3/uL (1.6-8.6) Lymphocytes # (Auto) 1.0 10 ^3/uL (0.4-5.4) Monocytes # (Auto) 0.6 10 ^3/uL (0-1.3) Eosinophils # (Auto) 0 10 ^3/uL (0-0.8) Basophils # (Auto) 0 10 ^3/uL (0-0.2) Nucleated Red Blood Cells 0.0 % Sodium Level 139 mmol/L (136-145) Potassium Level 4.0 mmol/L (3.5-5.1) Chloride Level 105 mmol/L (98-107) Carbon Dioxide Level 25 mmol/L (20-31) Anion Gap 9 (5-15) Blood Urea Nitrogen 14 mg/dL (9-23) Creatinine 0.83 mg/dL (0.700-1.30) Glomerular Filtration Rate Calc 94 mL/min (>90) BUN/Creatinine Ratio 16.9 (10.0-20.0) Serum Glucose 133 mg/dL (74-106) Calcium Level 9.5 mg/dL (8.7-10.4) Total Bilirubin 0.7 mg/dL (0.2-1.0) Aspartate Amino Transferase (AST) 12 U/L (13-40) Alanine Aminotransferase (ALT) 14 U/L (7-40) Alkaline Phosphatase 56 U/L (46-116) Total Protein 7.2 g/dL (5.7-8.2) Albumin 4.4 g/dL (3.2-4.8) Troponin I High Sensitivity 6 ng/L (</=54) Other Laboratory Tests 05/02/25 04:23 Brief Hx & Hospital Course: This is a 70 year old male presenting to the ED with chief complaint of facial weakness. Patient reports that he had woken up this morning with left sided facial droop. Patient denies any numbness, tingling, extremity weakness, chest pain, SOB, or headache. hypertensive crisis facial droop CVA rule out facial weakness admitted consult to neuro if needed tx of HTN urgency improved discharged to home time: >45 minutes Condition at Discharge: Fair Final Diagnosis/Problems List hypertensive urgency Discharge Disposition: Home Discharge Instruct/Medications Diet: Cardiac 2g Na,low cholest Activity: No Restrictions, As Tolerated Scheduled Losartan Potassium (Losartan Potassium), 1 TAB PO DAILY, (Reported) Losartan Potassium (Losartan Potassium), 50 MG PO DAILY Nifedipine (Nifedipine Er), 30 MG PO DAILY Discharge Statement: "Patient was advised to return to the ER or call 911 if any headaches, dizziness, shortness of breath, chest pain, abdominal pain, bleeding, fevers, or worsening of medical condition. Patient was counseled about treatment plan, medications, possible side effects, patientverbalized understanding. All questions were answered to the best of my ability. This discharge took greater then 30 minutes in planning, reviewing documentation, counseling the patient, and discussing with other team members." ASSESSMENT ASSESSMENT Assessment hypertensive urgency SABINO STINSON DO May 03, 2025 11:53
== END 2025-05-03 13:48 | disposition home or self-care (01) | DRG 305 ==
LOC: ER 11:23 → OVERFLOW 21:28 → WEST WING 05-02 18:19
PROVIDERS: ADMIT Internal Medicine; ATTEND Internal Medicine
DX: I16.0 Hypertensive urgency (principal); F41.9 Anxiety disorder, unspecified; I10 Essential (primary) hypertension; G51.0 Bell's palsy; Z79.899 Other long term (current) drug therapy
CPT/HCPCS: 36415; 70450; 80048; 80053; 84484; 85025; 96374; 99291; 99292; G0378